=== PATIENT | male | born 1935 | race Caucasian/White ===

== ENCOUNTER 2021-12-10 10:53 | Inpatient (IN) | payer OTHER, MEDICARE ==
[2021-12-10 12:58] LABS: HEMOGLOBIN 4.9 G/dL (11.7-16.9); MCH 22.2 pg (25.7-33.7); MCHC 32.3 g/dl (32.0-35.9); MEAN CELL VOLUME 68.7 fl (80-96); MEAN PLT VOLUME 7.7 fl (7.5-11.1); PLATELET COUNT 192.1 10^3/uL (134-434); RBC 2.18 10^6/uL (4.00-5.60); RDW 20.6 % (11.9-15.9); WHITE BLOOD COUNT 12.5 10^3/uL (4.0-10.8)
[2021-12-10 12:59] LABS: ALBUMIN 3.4 g/dl (3.4-5.0); BILIRUBIN,TOTAL 1.3 mg/dl (0.2-1); CALCIUM 8.5 mg/dl (8.5-10); CREATININE 1.3 mg/dl (0.55-1.3); PHOSPHOROUS 3.6 mg/dl (2.5-4.9); TOT PROT 5.4 g/dl (6.4-8.2)
[2021-12-10 14:06] LABS: ANISOCYTOSIS 2+; SMUDGE CELLS FEW
[2021-12-10 14:07] LABS: INR 3.6 (0.83-1.09); PROTHROMBIN TIME (PATIENT) 41.9 SEC (9.7-13.0)
[2021-12-10 14:07] LABS: PLATELET ESTIMATE ADEQUATE
[2021-12-10 15:54] LABS: EPITHELIAL CELLS FEW /hpf
[2021-12-10 16:56] VITALS: BMI 25.4
[2021-12-10] MEDS: ATORVASTATIN CA 10 MG TABLET (FP) PO SCH (21:36)
[2021-12-10] MEDS: lamoTRIgine 100 MG TABLET PO SCH (21:36)
[2021-12-10 22:48] LABS: N-TERMINAL BNP 1158.4 pg/ml (5-450)
[2021-12-11 01:13] LABS: EPI CELLS 33 /uL (0-25.1); HYALINE CASTS 2 /uL (0-3.1); PH,URINE 5.5 (5.0-8.0); URINE APPEARANCE CLOUDY; URINE BACTERIA 24 /uL (0-1359); URINE BILIRUBIN NEGATIVE (NEGATIVE); URINE COLOR ORANGE; URINE GLUCOSE (UA) NEGATIVE (NEGATIVE); URINE KETONE TRACE (NEGATIVE); URINE LEUK ESTERASE TRACE (NEGATIVE); URINE NITRITE NEGATIVE (NEGATIVE); URINE PROTEIN 2+ (NEGATIVE); URINE WBC 181 /uL (0-25.8)
[2021-12-11 04:18] LABS: URINE RBC 753.4 /uL (0-23.9); YEAST FEW (NEGATIVE)
[2021-12-11 09:04] LABS: ALBUMIN 3.2 g/dl (3.4-5.0); BILIRUBIN,TOTAL 4.7 mg/dl (0.2-1); CALCIUM 8.1 mg/dl (8.5-10)
[2021-12-11 09:06] LABS: INR 2.72 (0.83-1.09); PROTHROMBIN TIME (PATIENT) 31.6 SEC (9.7-13.0)
[2021-12-11] MEDS: METOPROLOL TARTRATE 25 MG TABLET (FP) PO SCH (09:41)
[2021-12-11] MEDS: lamoTRIgine 100 MG TABLET PO SCH ×2 (09:41→22:11)
[2021-12-11 11:35] LABS: HEMATOCRIT 19.3 % (35.4-49); MCH 22.4 pg (25.7-33.7); MCHC 31.2 g/dl (32.0-35.9); MEAN CELL VOLUME 71.8 fl (80-96); MEAN PLT VOLUME 7.6 fl (7.5-11.1); PLATELET COUNT 162 10^3/uL (134-434); RBC 2.68 M/mm3 (4.00-5.60); RDW 25.5 % (11.9-15.9); WHITE BLOOD COUNT 10.8 K/mm3 (4.0-10.0)
[2021-12-11 15:21] LABS: ANISOCYTOSIS 2+; MACROCYTOSIS 0; OVALOCYTE 1+
[2021-12-11] MEDS: ATORVASTATIN CA 10 MG TABLET (FP) PO SCH (22:11)
[2021-12-12 02:32] LABS: HEMATOCRIT 26.4 % (35.4-49); HEMOGLOBIN 8.5 GM/dL (11.7-16.9); MCH 24.3 pg (25.7-33.7); MCHC 32.2 g/dl (32.0-35.9); MEAN CELL VOLUME 75.4 fl (80-96); MEAN PLT VOLUME 7.6 fl (7.5-11.1); PLATELET COUNT 174 10^3/uL (134-434); RDW 25.6 % (11.9-15.9)
[2021-12-12 02:38] LABS: WHITE BLOOD COUNT 15.6 K/mm3 (4.0-10.0)
[2021-12-12 08:12] LABS: INR 2.42 (0.83-1.09); PROTHROMBIN TIME (PATIENT) 28.1 SEC (9.7-13.0)
[2021-12-12 08:21] LABS: CALCIUM 8.4 mg/dl (8.5-10); MAGNESIUM 1.9 mg/dL (1.8-2.4); PHOSPHOROUS 2.4 mg/dl (2.5-4.9)
[2021-12-12 09:46] LABS: HEMATOCRIT 27.6 % (35.4-49); HEMOGLOBIN 8.9 GM/dL (11.7-16.9); MCH 24.2 pg (25.7-33.7); MCHC 32.1 g/dl (32.0-35.9); MEAN CELL VOLUME 75.5 fl (80-96); MEAN PLT VOLUME 7.5 fl (7.5-11.1); PLATELET COUNT 180 10^3/uL (134-434); RBC 3.66 M/mm3 (4.00-5.60); RDW 25.4 % (11.9-15.9); WHITE BLOOD COUNT 17.6 K/mm3 (4.0-10.0)
[2021-12-12] MEDS: lamoTRIgine 100 MG TABLET PO SCH ×2 (10:16→22:02)
[2021-12-12] MEDS: METOPROLOL TARTRATE 25 MG TABLET (FP) PO SCH (10:16)
[2021-12-12 10:34] VITALS: RESP 18
[2021-12-12 10:53] LABS: ANISOCYTOSIS 3+; MACROCYTOSIS 0; OVALOCYTE 1+
[2021-12-12] MEDS: FINASTERIDE 5 MG TABLET (FP) PO SCH (16:44)
[2021-12-12] MEDS: TAMSULOSIN HCL 0.4 MG CAP PO SCH (16:44)
[2021-12-12] MEDS: ATORVASTATIN CA 10 MG TABLET (FP) PO SCH (22:02)
[2021-12-13 08:23] LABS: INR 1.85 (0.83-1.09); PROTHROMBIN TIME (PATIENT) 21.4 SEC (9.7-13.0)
[2021-12-13 08:24] LABS: HEMATOCRIT 25.4 % (35.4-49); MCH 24.3 pg (25.7-33.7); MCHC 31.3 g/dl (32.0-35.9); MEAN CELL VOLUME 77.6 fl (80-96); MEAN PLT VOLUME 7.7 fl (7.5-11.1); PLATELET COUNT 144.6 10^3/uL (134-434); RBC 3.27 10^6/uL (4.00-5.60); RDW 25.4 % (11.9-15.9); WHITE BLOOD COUNT 13.3 10^3/uL (4.0-10.8)
[2021-12-13 08:28] LABS: CREATININE 0.8 mg/dl (0.55-1.3)
[2021-12-13] MEDS: TAMSULOSIN HCL 0.4 MG CAP PO SCH ×2 (09:03→21:14)
[2021-12-13] MEDS: METOPROLOL TARTRATE 25 MG TABLET (FP) PO SCH (09:03)
[2021-12-13] MEDS: FINASTERIDE 5 MG TABLET (FP) PO SCH (09:03)
[2021-12-13] MEDS: lamoTRIgine 100 MG TABLET PO SCH ×2 (09:03→21:14)
[2021-12-13] MEDS: FUROSEMIDE 20 MG TABLET (FP) PO SCH (10:23)
[2021-12-13] MEDS: ATORVASTATIN CA 10 MG TABLET (FP) PO SCH (21:14)
[2021-12-14] MEDS ORDERED: LIDOCAINE HCL 5% TOP OINTMENT 50 GM TUBE TP ONE (03:07)
[2021-12-14 09:13] LABS: HEMATOCRIT 25.8 % (35.4-49); HEMOGLOBIN 8.3 G/dL (11.7-16.9); MCH 25.6 pg (25.7-33.7); MCHC 32.3 g/dl (32.0-35.9); MEAN CELL VOLUME 79.3 fl (80-96); MEAN PLT VOLUME 7.8 fl (7.5-11.1); PLATELET COUNT 151.1 10^3/uL (134-434); RBC 3.25 10^6/uL (4.00-5.60); RDW 27.7 % (11.9-15.9); WHITE BLOOD COUNT 13.7 10^3/uL (4.0-10.8)
[2021-12-14 09:20] LABS: INR 1.68 (0.83-1.09); PROTHROMBIN TIME (PATIENT) 19.4 SEC (9.7-13.0)
[2021-12-14] MEDS: TAMSULOSIN HCL 0.4 MG CAP PO SCH (09:20)
[2021-12-14] MEDS: lamoTRIgine 100 MG TABLET PO SCH (09:20)
[2021-12-14] MEDS: FUROSEMIDE 20 MG TABLET (FP) PO SCH (09:20)
[2021-12-14] MEDS: FINASTERIDE 5 MG TABLET (FP) PO SCH (09:20)
[2021-12-14 09:23] LABS: CALCIUM 8.1 mg/dl (8.5-10); CREATININE 0.9 mg/dl (0.55-1.3)
[2021-12-14 09:38] VITALS: BP 111/84; PULSE 109; TEMP 97.6
[2021-12-14 09:49] LABS: ALBUMIN 3.3 g/dl (3.4-5.0); BILIRUBIN,DIRECT 0.5 mg/dL (0.0-0.2); BILIRUBIN,TOTAL 2.2 mg/dl (0.2-1); TOT PROT 5.2 g/dl (6.4-8.2)
[2021-12-14] MEDS ORDERED: metoPROLOL SUCCINATE 25 MG TAB.SR.24H (FP) PO SCH (10:00)
[2021-12-14 11:26] LABS: PLATELET ESTIMATE ADEQUATE
== END 2021-12-14 11:59 | disposition home or self-care (01) | DRG 687 ==
LOC: FER 10:53 → FM/S 14:09
PROVIDERS: ADMIT Internal Medicine; ATTEND Internal Medicine
DX: D49.4 Neoplasm of unspecified behavior of bladder (principal); C91.10 Chronic lymphocytic leukemia of B-cell type not having achieved remission; D62 Acute posthemorrhagic anemia; E87.1 Hypo-osmolality and hyponatremia; I48.91 Unspecified atrial fibrillation; Z79.01 Long term (current) use of anticoagulants; I10 Essential (primary) hypertension; E78.5 Hyperlipidemia, unspecified; I25.10 Atherosclerotic heart disease of native coronary artery without angina pectoris; I25.2 Old myocardial infarction; R74.01 Elevation of levels of liver transaminase levels; R79.1 Abnormal coagulation profile; D50.9 Iron deficiency anemia, unspecified; R31.9 Hematuria, unspecified; N28.1 Cyst of kidney, acquired; D49.6 Neoplasm of unspecified behavior of brain; N40.0 Benign prostatic hyperplasia without lower urinary tract symptoms
CPT/HCPCS: 0241U-QW; 36415; 36430; 71045-TC-FY; 74178-TC; 76775-TC; 76856-TC; 80048; 80053; 80076; 81003; 81015; 82272; 82550; 82607; 82728; 82746; 82962; 83010; 83540; 83550; 83735; 83880; 84100; 84443; 84484; 85025; 85027; 85045; 85610; 86850; 86880; 86900; 86901; 86922; 87086; 93005; 97116-GP; 97162-GP; 99291; P9058; Q9967

== ENCOUNTER 2024-08-26 18:24 | Inpatient (IN) | payer OTHER, MEDICARE ==
[2024-08-26 19:56] LABS: EOSINOPHIL % 0.0 % (0.8-7.0)
[2024-08-26] MEDS: SODIUM CHLORIDE 1,000 ML IV ONE (20:12)
[2024-08-26 20:13] LABS: ABSOLUTE IMMATURE GRANULOCYTES 0.04 x10^3/uL (0.0-0.031); BASOPHILS # 0.02 x10^3/uL (0.01-0.08); EOSINOPHILS # 0.00 x10^3/uL (0.04-0.54); MCHC 28.6 g/dl (32.3-36.5); MEAN CELL VOLUME 90.7 fl (79.0-92.2); MEAN PLT VOLUME 9.6 fl (9.4-12.4); MONOCYTE # 0.26 x10^3/uL (0.30-0.82); MONOCYTE % 0.8 % (5.3-12.2); RDW 16.9 % (12.6-16.6)
[2024-08-26 20:15] LABS: ALK PHOS 56 U/L (45-117); CO2 20 mmol/L (21-32); CREATININE 1.3 mg/dl (0.6-1.3); GLUCOSE,RANDOM 111 mg/dl (74-106); SGOT/AST 18 U/L (15-37); SGPT/ALT 14 U/L (7-52); TOT PROT 5.0 g/dl (6.4-8.2)
[2024-08-26 21:02] LABS: ACTIVATED PTT 58.7 SECONDS (25.2-36.5)
[2024-08-26 21:31] LABS: INR 13.41 (0.83-1.09); PROTHROMBIN TIME (PATIENT) 148.9 SEC (9.7-13.0)
[2024-08-26 23:19] LABS: HCV DIAGNOSTIC IN-HOUSE W/RFLX NON-REACTIVE (NONREACTIVE); HIV INTERPRETATION NEGATIVE (NEGATIVE)
[2024-08-27 08:49] LABS: ABSOLUTE IMMATURE GRANULOCYTES 0.05 x10^3/uL (0.0-0.031); BASOPHILS # 0.02 x10^3/uL (0.01-0.08); EOSINOPHIL % 0.1 % (0.8-7.0); EOSINOPHILS # 0.04 x10^3/uL (0.04-0.54); MCHC 29.3 g/dl (32.3-36.5); MEAN CELL VOLUME 88.9 fl (79.0-92.2); MEAN PLT VOLUME 9.2 fl (9.4-12.4); MONOCYTE # 0.25 x10^3/uL (0.30-0.82); MONOCYTE % 0.7 % (5.3-12.2); RDW 15.9 % (12.6-16.6)
[2024-08-27 08:52] LABS: PROTHROMBIN TIME (PATIENT) 96.0 SEC (9.7-13.0)
[2024-08-27 08:54] LABS: ACTIVATED PTT 54.2 SECONDS (25.2-36.5)
[2024-08-27 09:02] LABS: ALK PHOS 57 U/L (45-117); CO2 21 mmol/L (21-32); CREATININE 1.2 mg/dl (0.6-1.3); GLUCOSE,RANDOM 103 mg/dl (74-106); SGOT/AST 24 U/L (15-37); SGPT/ALT 24 U/L (7-52); TOT PROT 4.9 g/dl (6.4-8.2)
[2024-08-27] MEDS ORDERED: PROTHROMBIN COMPLEX CONCENTRATE IVPB ONE (09:45)
[2024-08-27] MEDS: LACTATED RINGERS SOLUTION 1,000 ML/1,000 ML INFUS.BAG IV SCH (10:08)
[2024-08-27] MEDS: PHYTONADIONE 10 MG/1 ML AMP IVPB ONE (10:08)
[2024-08-27 10:32] LABS: LACTIC ACID 3.4 mmol/L (0.4-2.0)
[2024-08-27] MEDS: PANTOPRAZOLE SODIUM 40 MG VIAL IVPUSH SCH (11:01)
[2024-08-27 11:26] LABS: INR 8.65 (0.83-1.09)
[2024-08-27 16:30] VITALS: BMI 23.6
[2024-08-27] MEDS: [UNRECOGNIZED DRUG - OTHER] IV ONE (17:48)
[2024-08-27 23:16] LABS: MCHC 30.8 g/dl (32.3-36.5); MEAN CELL VOLUME 86.7 fl (79.0-92.2); MEAN PLT VOLUME 9.4 fl (9.4-12.4); RDW 16.3 % (12.6-16.6)
[2024-08-28 01:19] LABS: IRON SERUM 9 ug/dL (50-175)
[2024-08-28 08:37] LABS: MCHC 30.6 g/dl (32.3-36.5); MEAN CELL VOLUME 86.6 fl (79.0-92.2); MEAN PLT VOLUME 9.0 fl (9.4-12.4); RDW 15.9 % (12.6-16.6)
[2024-08-28 08:43] LABS: CO2 25.0 mmol/L (21-32); GLUCOSE,RANDOM 81.0 mg/dL (74-106)
[2024-08-28 08:46] LABS: CREATININE 1.0 mg/dL (0.55-1.3)
[2024-08-28 11:23] LABS: INR 1.46 (0.83-1.09); PROTHROMBIN TIME (PATIENT) 15.9 SEC (9.7-13.0)
[2024-08-28 16:33] LABS: INR 1.45 (0.83-1.09); PROTHROMBIN TIME (PATIENT) 15.8 SEC (9.7-13.0)
[2024-08-29 07:52] LABS: MCHC 30.5 g/dl (32.3-36.5); MEAN CELL VOLUME 87.6 fl (79.0-92.2); MEAN PLT VOLUME 9.5 fl (9.4-12.4); RDW 15.9 % (12.6-16.6)
[2024-08-29 08:39] LABS: INR 1.36 (0.83-1.09); PROTHROMBIN TIME (PATIENT) 15.0 SEC (9.7-13.0)
[2024-08-29 09:52] LABS: CO2 27.0 mmol/L (21-32); GLUCOSE,RANDOM 82.0 mg/dL (74-106)
[2024-08-29 09:55] LABS: CREATININE 1.0 mg/dL (0.55-1.3); SGOT/AST 15.0 U/L (15-37); SGPT/ALT 25.0 U/L (13-61)
[2024-08-29 09:57] LABS: TOT PROT 4.7 g/dl (6.4-8.2)
[2024-08-29 09:58] LABS: ALK PHOS 78.0 U/L (45-117)
[2024-08-29 13:31] LABS: IRON SERUM 23.0 ug/dL (50-175)
[2024-08-29 14:42] LABS: LDH 145.0 U/L (87-246)
[2024-08-29] MEDS: IRON SUCROSE INJECTION 100 MG in SODIUM CHLORIDE 95 ML IVPB ONE (22:05)
[2024-08-30 08:40] LABS: MCHC 29.9 g/dl (32.3-36.5); MEAN CELL VOLUME 88.6 fl (79.0-92.2); MEAN PLT VOLUME 9.4 fl (9.4-12.4); RDW 16.6 % (12.6-16.6)
[2024-08-30 08:42] LABS: INR 1.32 (0.83-1.09); PROTHROMBIN TIME (PATIENT) 14.4 SEC (9.7-13.0)
[2024-08-30 09:18] LABS: CREATININE 0.9 mg/dL (0.55-1.3); GLUCOSE,RANDOM 79.0 mg/dL (74-106); SGPT/ALT 22.0 U/L (13-61)
[2024-08-30 09:20] LABS: TOT PROT 4.9 g/dl (6.4-8.2)
[2024-08-30 09:21] LABS: ALK PHOS 82.0 U/L (45-117); CO2 26.0 mmol/L (21-32)
[2024-08-30 09:22] LABS: SGOT/AST 17.0 U/L (15-37)
[2024-08-30] MEDS: EPLERENONE 25 MG TABLET PO SCH (10:24)
[2024-08-30] MEDS: APIXABAN 2.5 MG TABLET PO SCH (10:24)
[2024-08-30] MEDS: SACUBITRIL/VALSARTAN 24 MG-26 MG TABLET PO SCH (10:25)
[2024-08-30] MEDS: PANTOPRAZOLE 40 MG TABLET PO SCH (10:25)
[2024-08-31 07:45] LABS: MCHC 30.1 g/dl (32.3-36.5); MEAN CELL VOLUME 88.7 fl (79.0-92.2); MEAN PLT VOLUME 9.6 fl (9.4-12.4); RDW 17.2 % (12.6-16.6)
[2024-08-31 08:11] LABS: CO2 29.0 mmol/L (21-32); GLUCOSE,RANDOM 96.0 mg/dL (74-106); SGOT/AST 14.0 U/L (15-37); SGPT/ALT 18.0 U/L (13-61)
[2024-08-31 08:12] LABS: TOT PROT 4.9 g/dl (6.4-8.2)
[2024-08-31 08:13] LABS: CREATININE 0.9 mg/dL (0.55-1.3)
[2024-08-31 08:14] LABS: ALK PHOS 79.0 U/L (45-117)
[2024-08-31 14:31] LABS: LDL CHOLESTEROL (ONLY SJRH) 44.0 mg/dL (5-100)
[2024-08-31] MEDS: EMPAGLIFLOZIN (JARDIANCE) 10 MG TABLET PO SCH (15:13)
[2024-09-01] MEDS: EMPAGLIFLOZIN (JARDIANCE) 10 MG TABLET PO SCH (06:22)
[2024-09-01 09:15] LABS: MCHC 29.5 g/dl (32.3-36.5); MEAN CELL VOLUME 90.8 fl (79.0-92.2); MEAN PLT VOLUME 9.5 fl (9.4-12.4); RDW 17.0 % (12.6-16.6)
[2024-09-01 09:20] VITALS: RESP 16
[2024-09-01] MEDS ORDERED: ACETAMINOPHEN 325 MG TABLET (FP) PO PRN (10:03)
[2024-09-01 10:11] LABS: CO2 27.0 mmol/L (21-32); GLUCOSE,RANDOM 84.0 mg/dL (74-106)
[2024-09-01 10:14] LABS: CREATININE 1.1 mg/dL (0.55-1.3); SGOT/AST 11.0 U/L (15-37); SGPT/ALT 15.0 U/L (13-61)
[2024-09-01 10:16] LABS: TOT PROT 5.0 g/dl (6.4-8.2)
[2024-09-01 10:17] LABS: ALK PHOS 77.0 U/L (45-117)
[2024-09-01] MEDS ORDERED: LIDOCAINE 5% TOPICAL PATCH TP SCH (10:30)
[2024-09-01 14:02] VITALS: BP 90/61; PULSE 89; TEMP 98.1
[2024-09-01] MEDS ORDERED: LIDOCAINE PATCH REMOVAL MC SCH (22:00)
== END 2024-09-01 13:50 | disposition home or self-care (01) | DRG 813 ==
LOC: FER 18:24 → J4S 21:08 → FER 08-27 08:46
PROVIDERS: ADMIT Student in an Organized Health Care Education/Training Program; ATTEND Nurse Practitioner Family
PROC: 30233N1 Transfusion of Nonautologous Red Blood Cells into Peripheral Vein, Percutaneous Approach (ICD-10-PCS; principal; 2024-08-27)
PROC: 30233L1 Transfusion of Nonautologous Fresh Plasma into Peripheral Vein, Percutaneous Approach (ICD-10-PCS; 2024-08-27)
PROC: 30233K1 Transfusion of Nonautologous Frozen Plasma into Peripheral Vein, Percutaneous Approach (ICD-10-PCS; 2024-08-27)
PROC: 0DB98ZX Excision of Duodenum, Via Natural or Artificial Opening Endoscopic, Diagnostic (ICD-10-PCS; 2024-08-29)
PROC: 0DB68ZX Excision of Stomach, Via Natural or Artificial Opening Endoscopic, Diagnostic (ICD-10-PCS; 2024-08-29)
DX: D68.32 Hemorrhagic disorder due to extrinsic circulating anticoagulants (principal); E43 Unspecified severe protein-calorie malnutrition; C91.10 Chronic lymphocytic leukemia of B-cell type not having achieved remission; K92.2 Gastrointestinal hemorrhage, unspecified; I50.32 Chronic diastolic (congestive) heart failure; D64.9 Anemia, unspecified; G30.9 Alzheimer's disease, unspecified; E78.5 Hyperlipidemia, unspecified; I25.10 Atherosclerotic heart disease of native coronary artery without angina pectoris; I48.91 Unspecified atrial fibrillation; D36.9 Benign neoplasm, unspecified site; I11.0 Hypertensive heart disease with heart failure; Z68.23 Body mass index [BMI] 23.0-23.9, adult; F02.80 Dementia in other diseases classified elsewhere, unspecified severity, without behavioral disturbance, psychotic disturbance, mood disturbance, and anxiety
CPT/HCPCS: 36415; 36430; 36516; 80048; 80053; 80061; 81003; 81015; 82248; 82272; 82550; 82607; 82728; 82746; 83036; 83540; 83550; 83605; 83615; 83735; 84100; 84436; 84443; 84484; 85025; 85027; 85610; 85730; 86803; 86850; 86900; 86901; 86922; 87086; 87389; 88305-TC; 88342-TC; 93005; 93306-TC; 97116-GP; 97161-GP; 99285-25; J1756; P9017; P9038; P9058